=== PATIENT | female | born 1940 | race Caucasian/White ===

== ENCOUNTER 2018-03-20 07:34 | Emergency (ER) | payer MEDICARE, OTHER ==
[~2018-03-20] VITALS: Ht 157.5 cm; Wt 62.6 kg
[2018-03-20 07:53] VITALS: BP 138/65
== END 2018-03-20 08:34 | disposition home or self-care (01) ==
LOC: ER 07:37
DX: S93.601A Unspecified sprain of right foot, initial encounter (principal); M19.071 Primary osteoarthritis, right ankle and foot; Z88.2 Allergy status to sulfonamides; Z91.041 Radiographic dye allergy status; W19.XXXA Unspecified fall, initial encounter; Y93.89 Activity, other specified; Y99.8 Other external cause status; Y92.89 Other specified places as the place of occurrence of the external cause
CPT/HCPCS: 73630

== ENCOUNTER 2019-09-04 07:10 | Emergency (ER) | payer MEDICARE, OTHER ==
[~2019-09-04] VITALS: Ht 157.5 cm; Wt 63.5 kg
[2019-09-04 07:25] VITALS: BP 159/76
[2019-09-04] MEDS ORDERED: HYDROcodone-ACET 5/325MG TAB PO ONE (07:45)
== END 2019-09-04 08:49 | disposition home or self-care (01) ==
LOC: ER 07:10
DX: M43.6 Torticollis (principal); M50.322 Other cervical disc degeneration at C5-C6 level; Z88.2 Allergy status to sulfonamides
CPT/HCPCS: 72040